=== PATIENT | female | born 2000 | race Caucasian/White ===

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

== ENCOUNTER 2018-04-18 13:00 | Emergency (ER) | payer OTHER ==
--- NOTE | 2018-04-18 13:09 | ER Report ---
History and Physical Time Seen By MD: 13:07 HPI/ROS CHIEF COMPLAINT: Right ankle pain HISTORY OF PRESENT ILLNESS: Otherwise healthy 18-year-old female comes emergency Department walking through a local retail store [id number] her right ankle laterally patient had no knee trauma no fall did not hit her head pain is lateral malleoli able to ambulate the patient with palpation patient denies any knee or additional complaints noted patient is a history of prior ankle sprain to that ankle complaint patient states she heard a to pop REVIEW OF SYSTEMS: Respiratory: No cough, no dyspnea. Cardiovascular: No chest pain, no palpitations. Gastrointestinal: No vomiting, no abdominal pain. Musculoskeletal: Right ankle pain Remainder of the 14 system rev: Yes Allergies: Coded Allergies: fluticasone (Verified Allergy, Intermediate, RASH, 04/18/18) Home Meds Reported Medications Methylcellulose (CITRUCEL) 500 Mg Tablet, 1000 MG PO DAILY 04/18/18 Ferrous Sulfate, Dried (IRON) 159 Mg Tablet.er, 65 MG PO DAILY 04/18/18 Omeprazole (OMEPRAZOLE) 20 Mg Capsule.dr, 1 CAP PO BID, CAP 04/18/18 Levonorgestrel-Eth Estradiol (AVIANE) 1 Each Tablet, 1 EACH PO DAILY 04/18/18 Albuterol Sulfate 90 Mcg/Act (PROAIR HFA 90 MCG/ACT) 8.5 Gm Hfa.aer.ad, 1-2 PUFF IH 3-4XD, INHALER 04/18/18 Fluticasone/Salmeterol (ADVAIR HFA 230-21 MCG INHALER) 1 Inh Inh, 2 INH INH BID, INH 04/18/18 Cetirizine Hcl (ZYRTEC) 10 Mg Capsule, 10 MG PO QDAY, CAPSULE 04/18/18 Montelukast Sodium (SINGULAIR) 10 Mg Tablet, 1 TAB PO QDAY, TAB 04/18/18 Reviewed Nurses Notes: Yes Old Medical Records Reviewed: Yes Constitutional Vital Sign - Last 24 Hours 04/18/18 13:07 Temp 98.1 Pulse 87 Resp 16 B/P (MAP) 158/111 Pulse Ox 96 Physical Exam General appearance: [Alert no distress.] Respiratory: Chest is non tender, lungs are clear to auscultation. Cardiac: Regular rate and rhythm [ ] Examination right ankle demonstrates pain in the lateral malleoli palpation obvious deformity for range of motion pain with eversion of the ankle neurovascularly intact DIFFERENTIAL DIAGNOSIS: After history and physical exam differential diagnosis was considered for right ankle sprain versus fracture Medical Decision Making ED Course/Re-evaluation ED Course ED clinical course medical decision making this is an otherwise healthy 18 oh female rolled her ankle walking to a local retail establishment she has no evidence fractures dislocation or subluxation to several medial malleolar injury her lateral malleolus is intact as is a mortise and the rest of the x-ray no sign of fracture again patient has an eye lateral talofibular lateral ankle sprain we'll put her in Renzo wrap and follow up with primary care as needed Decision to Disposition Date: Apr 18, 2018 Decision to Disposition Time: 13:55 Depart Departure Latest Vital Signs Vital Signs Date Time Temp Pulse Resp B/P (MAP) Pulse Ox O2 Delivery O2 Flow Rate FiO2 04/18/18 13:07 98.1 87 16 158/111 96 Impression: Primary Impression: Ankle sprain Condition: Improved Disposition: HOME OR SELF-CARE Referrals: YASHIRA SAMS 5 Days Patient Instructions: Ankle Sprain (DC) GUILLERMO MCDOWELL MD Apr 18, 2018 13:09
[2018-04-18] MEDS ORDERED: MONT10TA PO (13:14)
[2018-04-18] MEDS ORDERED: ALBU8.5H IH (13:14)
[2018-04-18] MEDS ORDERED: CETI10CA8 PO (13:14)
[2018-04-18] MEDS ORDERED: LEVO1TAB31 PO (13:14)
[2018-04-18] MEDS ORDERED: OMEP-125 PO (13:14)
[2018-04-18] MEDS ORDERED: FERR159T PO (13:14)
[2018-04-18] MEDS ORDERED: ADV230RPT INH (13:14)
[2018-04-18] MEDS ORDERED: CIT500PT PO (13:14)
--- NOTE | 2018-04-18 13:46 | RADIOLOGY IMAGING REPORT ---
FACILITY: [facility] - [place], [place] PATIENT NAME: Leobardo Guardado : 2000 MR: [id number] V: [id number] EXAM DATE: ORDERING PHYSICIAN: GUILLERMO MCDOWELL TECHNOLOGIST: Location: [facility] - [place] Patient: Leobardo Guardado : 2000 Visit/Account:[id number] Date of Sevice: 04/18/2018 Exam type: ANKLE 3 VIEW MIN RIGHT History: Rolled ankle and heard "4 pops" Comparison: None. Findings: There is a well-corticated bony density projecting just distal to the medial malleolus which appears old. There is also irregularity of the medial malleolus suggesting old trauma. The ankle mortise ap pears intact. There is no demonstration of acute fracture or dislocation There is IMPRESSION: 1. Findings are consistent with old injury to the right medial malleolus although no evidence of acu te fracture or dislocation is seen Report Dictated By: Paulina Izquierdo MD at 04/18/2018 1:28 PM Report E-Signed By: Paulina Izquierdo MD at 04/18/2018 1:40 PM WSN:[id number]
[2018-04-18 13:58] VITALS: BP 135/77
== END 2018-04-18 14:00 | disposition home or self-care (01) ==
LOC: ER 13:25
DX: S93.401A Sprain of unspecified ligament of right ankle, initial encounter (principal)
CPT/HCPCS: 99283

== ENCOUNTER → 2018-04-20 | Outpatient (REF) | payer OTHER ==
[~2018-04-20] MED LIST: ADV230RPT INH; ALBU8.5H IH; CETI10CA8 PO; CIT500PT PO; FERR159T PO; LEVO1TAB31 PO; MONT10TA PO; OMEP-125 PO
== END ==
LOC: ZZSENDIN 12:00
PROVIDERS: ATTEND Orthopaedic Surgery Hand Surgery
DX: M67.432 Ganglion, left wrist (principal)
CPT/HCPCS: 88304